=== PATIENT | male | born 1950 | race Two or more races ===

== ENCOUNTER 2025-01-28 14:29 | Inpatient (IN) | payer OTHER ==
[~2025-01-28] VITALS: Ht 177.8 cm; Wt 68.0 kg
[2025-01-28] MEDS ORDERED: ALDACTONE25 MG PO (14:42)
[2025-01-28] MEDS ORDERED: ZESTRIL2.5 MG PO (14:42)
[2025-01-28] MEDS ORDERED: GRALISE600 MG PO (14:43)
[2025-01-28] MEDS ORDERED: FARXIGA10 MG PO (14:43)
[2025-01-28] MEDS ORDERED: GLIMEPIRIDE4 M1 PO (14:43)
[2025-01-28] MEDS ORDERED: LASIX20 MG PO (14:43)
--- NOTE | 2025-01-28 14:43 | NUR ---
SE RECIBE PACIENTE ALERTA Y CONCIENTE X3. EL MISMO REFIERE VENIR POR ULCERA EN EL PIEZ IZQ. SE PROCEDE A LAVELLE S/V AL PACIENTE Y SE UBICA EN LEROY 11 CON BARANDAS ELEVADAS Y NIVEL MAS BAJO DE LA MISMA.
[2025-01-28] MEDS ORDERED: FAMOtidine 10 MG/ML (4ML VIAL) IV ONE (15:00)
[2025-01-28] MEDS ORDERED: PIPERACILLIN/TAZOBACTAM SODIUM 3.375 GM VIAL IV ONE ×2 (15:00→15:19)
[2025-01-28] MEDS ORDERED: FAMOTIDINE/PF 20 MG/2 ML VIAL ONE (15:19)
[2025-01-28 15:54] LABS: BASO % 0.3 % (0.1-1.2); EOS # 0.21 (0.04-0.54); EOS % 1.8 % (0.7-7.0); LYMPH # 0.66 (1.18-3.74); LYMPH % 5.6 % (19.3-53.1); MEAN PLATELET VOLUME 9.90 fl (9.4-12.4); MONO # 0.71 (0.24-0.82); MONO % 6.0 % (4.7-12.5); NEUT # 10.13 (1.56-6.13); NEUT % 85.3 % (34.0-71.1); RED CELL DISTRIBUTION WIDTH 13.0 % (11.6-14.4)
--- NOTE | 2025-01-28 15:55 | NUR ---
SE ORIENTA A PACIENTE SOBRE TRATAMIENTO MEDICO, REFIERE ENTENDER. 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 SE ADMINISTRAN MEDICAMENTOS DONNA ORDEN MEDICAS, SE ENTREGA ENVASE PARA U/A. PENDIENTE REALIZAR X-RAY.
[2025-01-28 16:06] LABS: ERYTHROCYTE SEDIMENTATION RATE 68 mm/hr (0-20)
[2025-01-28 16:08] LABS: URINE APPEARANCE Clear; URINE BILIRRUBIN Negative (NEGATIVE); URINE BLOOD Negative; URINE COLOR Yellow; URINE KETONE Negative (NEGATIVE); URINE LEUKOCYTE Negative; URINE NITRATE Negative; URINE PROTEIN Negative (NEGATIVE); URINE UROBILINOGEN 0.2 E.U./dl
[2025-01-28 16:11] LABS: URINE BACTERIA 30.0 uL (0.0-1933); URINE EPITHELIAL CELLS 2.7 uL (0.0-38.8); URINE WBC 4.3 uL (0.0-23.2)
[2025-01-28 16:14] LABS: INR 1.06
[2025-01-28 16:20] LABS: URINE CAST 0.29 uL (0.0-1.40); URINE GLUCOSE >=1000 MG/DL (NEGATIVE); URINE RBC 1.6 uL (0.0-20.8)
[2025-01-28 16:20] LABS: ALT/SGPT 33.0 U/L (12-78); AST/SGOT 34.0 U/L (15-37); BILIRUBIN TOTAL 0.49 mg/dL (0.3-1.2); CREATININE SERUM 2.01 mg/dL (0.70-1.30); GFR 32.46; GLOBULINA 3.8 G/DL (2.4-3.5)
[2025-01-28 16:22] LABS: BUN CREA RATIO 41.0 (7.0-25.0); GLUCOSE FASTING 246.0 mg/dL (65-100); OSMOLALITY SERUM 307.0 MOSM/KG (275-295)
[2025-01-28] MEDS ORDERED: DEXTROSE 50 % IN WATER 0.5 G/ML VIAL IV PRN (20:00)
[2025-01-28] MEDS ORDERED: INSULIN LISPRO 1,000 UNIT/10 ML UNITS SUBCUTANEO PRN (20:00)
[2025-01-28] MEDS ORDERED: VANCOMYCIN HCL 1,000 MG VIAL IV SCH (20:11)
[2025-01-28] MEDS ORDERED: ENOXAPARIN SODIUM 40 MG/0.4 ML SYRINGE SUBCUTANEO SCH (20:13)
[2025-01-28] MEDS ORDERED: SODIUM POLYSTYRENE SULFONATE 15 G/4 TSP TSP PO ONE (20:15)
[2025-01-28] MEDS ORDERED: 0.9 % SODIUM CHLORIDE 1,000 ML IV SCH (20:15)
[2025-01-28] MEDS ORDERED: ACETAMINOPHEN 325 MG TABLET PO PRN (20:15)
[2025-01-28] MEDS ORDERED: hydrALAZINE HCL 20 MG VIAL IV PRN (20:30)
[2025-01-28] MEDS ORDERED: VANCOMYCIN HCL 1,000 MG VIAL ONE (20:50)
[2025-01-28] MEDS ORDERED: ENOXAPARIN SODIUM 40 MG/0.4 ML SYRINGE SUBCUTANEO ONE (20:50)
[2025-01-28] MEDS ORDERED: SODIUM POLYSTYRENE SULFONATE 15 G/4 TSP TSP ONE (20:50)
[2025-01-28 22:04] VITALS: BP 126/54
[2025-01-28] MEDS ORDERED: NITROGLYCERIN IN 5 % DEXTROSE 250 ML IV SCH (22:15)
[2025-01-29 02:00] VITALS: BP 129/67
[2025-01-29 08:49] VITALS: BP 120/64; O2SAT 99
[2025-01-29] MEDS ORDERED: LINEZOLID IN DEXTROSE 5% 600 MG/300 ML PIGGYBAG IV SCH (09:00)
[2025-01-29] MEDS ORDERED: LACTOBACILLUS ACIDOPHILUS 1 CAP CAP PO SCH (09:00)
[2025-01-29 09:36] LABS: ALT/SGPT 26.0 U/L (12-78); AST/SGOT 26.0 U/L (15-37); BILIRUBIN TOTAL 0.51 mg/dL (0.3-1.2); BUN CREA RATIO 41.0 (7.0-25.0); CREATININE SERUM 1.64 mg/dL (0.70-1.30); GFR 41.05; GLOBULINA 3.4 G/DL (2.4-3.5); GLUCOSE FASTING 109.0 mg/dL (65-100); OSMOLALITY SERUM 305.0 MOSM/KG (275-295)
[2025-01-29] MEDS ORDERED: FLUCONAZOLE 100 MG TABLET PO SCH (10:30)
[2025-01-29] MEDS ORDERED: CHLORHEXIDINE GLUCONATE 120 ML BOTTLE TOP SCH (10:30)
[2025-01-29] MEDS ORDERED: EMOLLIENTS 6 OZ BOTTLE TOP SCH (17:00)
[2025-01-29] MEDS ORDERED: CLOTRIMAZOLE 30 GM TUBE TOP SCH (17:00)
[2025-01-29 17:55] VITALS: BP 127/62
[2025-01-29] MEDS ORDERED: DAPTOMYCIN 500 MG IV SCH (22:00)
[2025-01-30 03:12] VITALS: BP 147/70; O2SAT 99
[2025-01-30 06:24] LABS: BASO % 0.2 % (0.1-1.2); EOS # 0.15 (0.04-0.54); EOS % 1.4 % (0.7-7.0); LYMPH # 0.90 (1.18-3.74); LYMPH % 8.3 % (19.3-53.1); MEAN PLATELET VOLUME 10.40 fl (9.4-12.4); MONO # 0.73 (0.24-0.82); MONO % 6.7 % (4.7-12.5); NEUT # 8.98 (1.56-6.13); NEUT % 82.5 % (34.0-71.1); RED CELL DISTRIBUTION WIDTH 13.1 % (11.6-14.4)
[2025-01-30 06:44] LABS: BUN CREA RATIO 43.0 (7.0-25.0); CREATININE SERUM 1.32 mg/dL (0.70-1.30); GFR 52.73; GLUCOSE FASTING 127.0 mg/dL (65-100); OSMOLALITY SERUM 308.0 MOSM/KG (275-295)
[2025-01-30] MEDS ORDERED: ASPIRIN 81 MG TAB.CHEW PO SCH (09:00)
[2025-01-30] MEDS ORDERED: ATORVASTATIN CALCIUM 40 MG TABLET PO SCH (09:00)
[2025-01-30 10:03] VITALS: BP 149/65; O2SAT 97
[2025-01-30] MEDS ORDERED: CEFAZOLIN SODIUM 2,000 MG in 0.9 % SODIUM CHLORIDE 100 ML IV NR (16:00)
[2025-01-30] MEDS ORDERED: PANTOPRAZOLE SODIUM 40 MG/VIAL VIAL IV SCH (17:00)
[2025-01-30 18:01] VITALS: BP 155/73
[2025-01-30] MEDS ORDERED: SODIUM CL 0.9% 100 ML IV.SOLN IV ONE (18:43)
[2025-01-31 01:42] VITALS: BP 154/70; O2SAT 96
[2025-01-31] MEDS ORDERED: CEFAZOLIN SODIUM 2,000 MG in 0.9 % SODIUM CHLORIDE 100 ML IV SCH (05:00)
[2025-01-31 06:41] LABS: BASO % 0.2 % (0.1-1.2); EOS # 0.09 (0.04-0.54); EOS % 1.1 % (0.7-7.0); LYMPH # 0.70 (1.18-3.74); LYMPH % 8.4 % (19.3-53.1); MEAN PLATELET VOLUME 10.20 fl (9.4-12.4); MONO # 0.73 (0.24-0.82); MONO % 8.7 % (4.7-12.5); NEUT # 6.69 (1.56-6.13); NEUT % 80.0 % (34.0-71.1); RED CELL DISTRIBUTION WIDTH 15.0 % (11.6-14.4)
[2025-01-31 09:02] VITALS: BP 154/67; O2SAT 98
[2025-01-31 18:48] VITALS: BP 168/62
[2025-02-01 02:53] VITALS: BP 144/68; O2SAT 97
[2025-02-01 09:22] VITALS: BP 178/75; O2SAT 98
[2025-02-01 15:42] VITALS: BP 176/74; O2SAT 99
[2025-02-02 02:11] VITALS: BP 110/72
[2025-02-02 07:56] LABS: BASO % 0.1 % (0.1-1.2); EOS # 0.16 (0.04-0.54); EOS % 1.6 % (0.7-7.0); LYMPH # 1.12 (1.18-3.74); LYMPH % 11.5 % (19.3-53.1); MEAN PLATELET VOLUME 9.80 fl (9.4-12.4); MONO # 0.69 (0.24-0.82); MONO % 7.1 % (4.7-12.5); NEUT # 7.58 (1.56-6.13); NEUT % 78.3 % (34.0-71.1); RED CELL DISTRIBUTION WIDTH 16.3 % (11.6-14.4)
[2025-02-02 09:06] VITALS: BP 160/80; O2SAT 97
[2025-02-02] MEDS ORDERED: SODIUM CL 0.9% 100 ML IV.SOLN IV ONE (16:42)
[2025-02-02 18:37] VITALS: BP 160/54; O2SAT 96
[2025-02-03 02:36] VITALS: BP 177/82; O2SAT 96
[2025-02-03 08:46] VITALS: BP 184/74; O2SAT 96
[2025-02-03] MEDS ORDERED: METRONIDAZOLE/SODIUM CHLORIDE 500 MG/100 ML PIGGYBACK IV STA (11:58)
[2025-02-03] MEDS ORDERED: AMLODIPINE BESYLATE 5 MG TABLET PO NR (12:45)
[2025-02-03] MEDS ORDERED: METRONIDAZOLE/SODIUM CHLORIDE 500 MG/100 ML PIGGYBACK IV SCH (17:00)
[2025-02-03] MEDS ORDERED: CEFAZOLIN SODIUM 2,000 MG in 0.9 % SODIUM CHLORIDE 100 ML IV SCH (17:00)
[2025-02-03 19:31] VITALS: BP 185/80
[2025-02-04 01:57] VITALS: BP 160/82; O2SAT 97
[2025-02-04 04:00] VITALS: BP 162/78
[2025-02-04] MEDS ORDERED: AMLODIPINE BESYLATE 5 MG TABLET PO SCH (09:00)
[2025-02-04] MEDS ORDERED: SODIUM HYPOCHLORITE 1OZ TOP SCH (09:00)
[2025-02-04 09:15] VITALS: BP 178/88; O2SAT 98
[2025-02-04] MEDS ORDERED: PANTOPRAZOLE SODIUM 40 MG TABLET.DR PO SCH (17:00)
[2025-02-04 17:14] VITALS: BP 155/71; O2SAT 99
[2025-02-05 01:55] VITALS: BP 160/78; O2SAT 96
[2025-02-05 06:22] LABS: BASO % 0.2 % (0.1-1.2); EOS # 0.11 (0.04-0.54); EOS % 1.3 % (0.7-7.0); LYMPH # 1.12 (1.18-3.74); LYMPH % 12.8 % (19.3-53.1); MEAN PLATELET VOLUME 10.40 fl (9.4-12.4); MONO # 0.47 (0.24-0.82); MONO % 5.4 % (4.7-12.5); NEUT # 6.98 (1.56-6.13); NEUT % 79.6 % (34.0-71.1); RED CELL DISTRIBUTION WIDTH 15.4 % (11.6-14.4)
[2025-02-05 06:37] LABS: BUN CREA RATIO 35.0 (7.0-25.0); CREATININE SERUM 0.82 mg/dL (0.70-1.30); GFR 91.35; GLUCOSE FASTING 99.0 mg/dL (65-100); OSMOLALITY SERUM 296.0 MOSM/KG (275-295)
[2025-02-05 08:29] VITALS: BP 167/82; O2SAT 98
[2025-02-05] MEDS ORDERED: LISINOPRIL 5 MG TABLET PO SCH (12:00)
[2025-02-05 17:00] VITALS: BP 156/83; O2SAT 98
[2025-02-06 02:10] VITALS: BP 172/85
[2025-02-06 09:37] VITALS: BP 162/76; O2SAT 96
[2025-02-06] MEDS ORDERED: VITAMIN B COMPLEX/LYSINE 15 ML BLIST.PACK PO SCH (17:00)
[2025-02-06 19:05] VITALS: BP 146/66; O2SAT 97
[2025-02-07 07:00] VITALS: BP 162/84; O2SAT 94
[2025-02-07] MEDS ORDERED: LISINOPRIL 10 MG TABLET PO SCH (09:00)
[2025-02-07 09:53] VITALS: BP 149/82; O2SAT 96
[2025-02-07 20:26] VITALS: BP 137/63; O2SAT 96
[2025-02-08 03:05] VITALS: BP 151/72; O2SAT 96
[2025-02-08 08:04] LABS: BASO % 0.4 % (0.1-1.2); EOS # 0.14 (0.04-0.54); EOS % 1.7 % (0.7-7.0); LYMPH # 0.74 (1.18-3.74); LYMPH % 9.1 % (19.3-53.1); MEAN PLATELET VOLUME 10.60 fl (9.4-12.4); MONO # 0.64 (0.24-0.82); MONO % 7.9 % (4.7-12.5); NEUT # 6.50 (1.56-6.13); NEUT % 80.2 % (34.0-71.1); RED CELL DISTRIBUTION WIDTH 16.3 % (11.6-14.4)
[2025-02-08 08:25] LABS: BUN CREA RATIO 28.0 (7.0-25.0); CREATININE SERUM 1.08 mg/dL (0.70-1.30); GFR 66.48; GLUCOSE FASTING 121.0 mg/dL (65-100)
[2025-02-08 09:42] LABS: OSMOLALITY SERUM 305.0 MOSM/KG (275-295)
[2025-02-08 10:35] VITALS: BP 136/58; O2SAT 97
[2025-02-08] MEDS ORDERED: SODIUM CHLORIDE 0.45 % 1,000 ML IV SCH (10:45)
[2025-02-08 17:28] VITALS: BP 139/69; O2SAT 98
[2025-02-09 02:36] VITALS: BP 133/66; O2SAT 96
[2025-02-09 10:08] VITALS: BP 132/65; O2SAT 97
[2025-02-09 17:29] LABS: BASO % 0.3 % (0.1-1.2); EOS # 0.08 (0.04-0.54); EOS % 0.8 % (0.7-7.0); LYMPH # 0.67 (1.18-3.74); LYMPH % 6.4 % (19.3-53.1); MEAN PLATELET VOLUME 10.90 fl (9.4-12.4); MONO # 0.77 (0.24-0.82); MONO % 7.3 % (4.7-12.5); NEUT # 8.87 (1.56-6.13); NEUT % 84.1 % (34.0-71.1); RED CELL DISTRIBUTION WIDTH 16.3 % (11.6-14.4)
[2025-02-09 17:48] LABS: BUN CREA RATIO 30.0 (7.0-25.0); CREATININE SERUM 1.18 mg/dL (0.70-1.30); GFR 60.02; GLUCOSE FASTING 172.0 mg/dL (65-100); OSMOLALITY SERUM 304.0 MOSM/KG (275-295)
[2025-02-09 17:51] VITALS: BP 136/68; O2SAT 95
[2025-02-10 03:12] VITALS: BP 144/70; O2SAT 96
[2025-02-10 09:15] VITALS: BP 150/79; O2SAT 96
[2025-02-10 18:23] VITALS: BP 153/54; O2SAT 97
[2025-02-10] MEDS ORDERED: ENOXAPARIN SODIUM 60 MG/0.6 ML SYRINGE SUBCUTANEO SCH (21:00)
[2025-02-11 01:18] VITALS: BP 147/69; O2SAT 92
[2025-02-11 06:50] LABS: BASO % 0.3 % (0.1-1.2); EOS # 0.10 (0.04-0.54); EOS % 1.1 % (0.7-7.0); LYMPH # 0.90 (1.18-3.74); LYMPH % 10.3 % (19.3-53.1); MEAN PLATELET VOLUME 9.80 fl (9.4-12.4); MONO # 0.87 (0.24-0.82); MONO % 10.0 % (4.7-12.5); NEUT # 6.73 (1.56-6.13); NEUT % 77.3 % (34.0-71.1); RED CELL DISTRIBUTION WIDTH 16.6 % (11.6-14.4)
[2025-02-11 07:30] LABS: INR 1.92
[2025-02-11 08:45] VITALS: BP 133/71; O2SAT 97
[2025-02-11 08:59] LABS: BUN CREA RATIO 27.0 (7.0-25.0); CREATININE SERUM 1.28 mg/dL (0.70-1.30); GFR 54.64; GLUCOSE FASTING 148.0 mg/dL (65-100)
[2025-02-11 09:00] LABS: OSMOLALITY SERUM 308.0 MOSM/KG (275-295)
[2025-02-11] MEDS ORDERED: PHYTONADIONE 10 MG/ML AMPUL IM STA (09:58)
[2025-02-11 18:30] VITALS: BP 136/64
[2025-02-12 01:18] VITALS: BP 120/76; O2SAT 96
[2025-02-12 07:08] LABS: FE 39.0 ug/dl (65-175)
[2025-02-12 08:24] VITALS: BP 173/69; O2SAT 95
[2025-02-12 11:29] LABS: FOLIC ACID > 20.00 ng/ml (4.78-20)
[2025-02-12 19:00] VITALS: BP 123/66
[2025-02-12] MEDS ORDERED: SOD FERRIC GLUC COMPLX/SUCROSE 62.5 MG/5 ML AMPUL IV SCH (20:07)
[2025-02-13 01:05] VITALS: BP 119/71
[2025-02-13 09:12] VITALS: BP 129/60; O2SAT 96
[2025-02-13] MEDS ORDERED: Cyanocobalamin/Mecobalamin 1 TAB.SL SL NR (11:00)
[2025-02-13] MEDS ORDERED: MULTIVIT INFUSN,ADULT 4,VIT K 10 ML VIAL IV NR (11:00)
[2025-02-13 11:03] LABS: BUN CREA RATIO 20.0 (7.0-25.0); CREATININE SERUM 1.67 mg/dL (0.70-1.30); GFR 40.2; GLUCOSE FASTING 134.0 mg/dL (65-100); OSMOLALITY SERUM 304.0 MOSM/KG (275-295)
[2025-02-13] MEDS ORDERED: MORPHINE SULFATE 4 MG/ML CARTRIDGE IV PRN (11:30)
[2025-02-13 17:56] VITALS: BP 107/55; O2SAT 93
[2025-02-14 01:32] VITALS: BP 126/63; O2SAT 96
[2025-02-14] MEDS ORDERED: MULTIVIT INFUSN,ADULT 4,VIT K 10 ML VIAL IV SCH (09:00)
[2025-02-14] MEDS ORDERED: Cyanocobalamin/Mecobalamin 1 TAB.SL SL SCH (09:00)
[2025-02-14 09:47] VITALS: BP 103/64; O2SAT 96
[2025-02-14] MEDS ORDERED: CLOPIDOGREL BISULFATE 75 MG TABLET PO NR (11:00)
[2025-02-14 17:49] VITALS: BP 102/68; O2SAT 97
[2025-02-15 02:22] VITALS: BP 110/62
[2025-02-15] MEDS ORDERED: CLOPIDOGREL BISULFATE 75 MG TABLET PO SCH (09:00)
[2025-02-15 09:34] VITALS: BP 124/73
[2025-02-15 18:25] VITALS: BP 130/63; O2SAT 98
[2025-02-16 02:20] VITALS: BP 106/60; O2SAT 96
[2025-02-16 08:59] VITALS: BP 98/64; O2SAT 99
[2025-02-16 17:00] VITALS: BP 111/55; O2SAT 95
[2025-02-17 02:28] VITALS: BP 116/50; O2SAT 96
[2025-02-17 07:08] LABS: g6pd quant 263 (127-427)
[2025-02-17 10:04] VITALS: BP 114/66; O2SAT 96
[2025-02-17 16:41] VITALS: BP 102/63
[2025-02-17 19:22] LABS: BASO % 0.3 % (0.1-1.2); EOS # 0.12 (0.04-0.54); EOS % 1.1 % (0.7-7.0); LYMPH # 0.87 (1.18-3.74); LYMPH % 7.7 % (19.3-53.1); MEAN PLATELET VOLUME 10.10 fl (9.4-12.4); MONO # 1.19 (0.24-0.82); MONO % 10.6 % (4.7-12.5); NEUT # 8.86 (1.56-6.13); NEUT % 78.7 % (34.0-71.1); RED CELL DISTRIBUTION WIDTH 19.3 % (11.6-14.4)
[2025-02-18] VITALS (13 sets, daily range): BP systolic 67–114; BP diastolic 28–93; O2SAT 80–100
[2025-02-18 06:25] LABS: BASO % 0.2 % (0.1-1.2); EOS # 0.06 (0.04-0.54); EOS % 0.5 % (0.7-7.0); LYMPH # 0.95 (1.18-3.74); LYMPH % 8.0 % (19.3-53.1); MEAN PLATELET VOLUME 10.40 fl (9.4-12.4); MONO # 1.20 (0.24-0.82); MONO % 10.2 % (4.7-12.5); NEUT # 9.37 (1.56-6.13); NEUT % 79.2 % (34.0-71.1); RED CELL DISTRIBUTION WIDTH 19.6 % (11.6-14.4)
[2025-02-18 06:31] LABS: ABG PH 6.980 (7.35-7.45); ABG PO2 137.2 mmHg (80-100); BICARBONATE 9.5 mmol/l (23-25); o2 100 %
[2025-02-18 06:58] LABS: GLUCOSE FASTING 99.0 mg/dL (65-100); OSMOLALITY SERUM 306.0 MOSM/KG (275-295)
[2025-02-18 07:16] LABS: BUN CREA RATIO 12.0 (7.0-25.0); GFR 11.31
[2025-02-18 07:17] LABS: CREATININE SERUM 5.01 mg/dL (0.70-1.30)
[2025-02-18] MEDS ORDERED: 0.9 % SODIUM CHLORIDE 1,000 ML IV ONE (07:30)
[2025-02-18] MEDS ORDERED: NOREPINEPHRINE BITARTRATE 8 MG in DEXTROSE 5 % IN WATER 250 ML IV SCH (07:30)
[2025-02-18] MEDS ORDERED: SODIUM BICARBONATE 1 MEQ/ML DISP.SYRIN 50ML IV ONE (07:30)
[2025-02-18] MEDS ORDERED: SODIUM BICARBONATE 1 MEQ/ML DISP.SYRIN 50ML IV SCH (07:45)
[2025-02-18] MEDS ORDERED: DOPamine HCL IN DEXTROSE 5 % 250 ML IV SCH (08:00)
[2025-02-18] MEDS ORDERED: POLYVINYL ALCOHOL 15 ML DROPS OP SCH (09:00)
[2025-02-18] MEDS ORDERED: CHLORHEXIDINE GLUCONATE 15ML BRUSH KIT MM SCH (09:00)
[2025-02-18] MEDS ORDERED: HYDROCORTISONE SODIUM SUCC/PF 100 MG VIAL IV SCH (09:00)
[2025-02-18] MEDS ORDERED: MEROPENEM 500 MG/VIAL VIAL IV STA (09:32)
[2025-02-18] MEDS ORDERED: FLUCONAZOLE IN NACL,ISO-OSM 2 MG/ML ML IV STA (09:34)
[2025-02-18 11:42] LABS: ABG PO2 232.2 mmHg (80-100); BICARBONATE 6.9 mmol/l (23-25)
[2025-02-18 11:45] LABS: ABG PH 7.044 (7.35-7.45); o2 100 %
[2025-02-18] MEDS ORDERED: SODIUM BICARBONATE 50MEQ/50ML VIAL IV NR (12:15)
[2025-02-18 12:22] LABS: BASO % 0.1 % (0.1-1.2); EOS # 0.02 (0.04-0.54); EOS % 0.2 % (0.7-7.0); LYMPH # 0.69 (1.18-3.74); LYMPH % 6.0 % (19.3-53.1); MEAN PLATELET VOLUME 10.10 fl (9.4-12.4); MONO # 0.82 (0.24-0.82); MONO % 7.2 % (4.7-12.5); NEUT # 9.63 (1.56-6.13); NEUT % 84.4 % (34.0-71.1); RED CELL DISTRIBUTION WIDTH 20.1 % (11.6-14.4)
[2025-02-18] MEDS ORDERED: 0.9 % SODIUM CHLORIDE 1,000 ML IV SCH ×4 (14:45→15:15)
[2025-02-18] MEDS ORDERED: EPINEPHRINE HCL/PF 4 MG in DEXTROSE 5 % IN WATER 250 ML IV SCH (14:45)
[2025-02-18] MEDS ORDERED: VASOPRESSIN 40 UNITS in 0.9 % SODIUM CHLORIDE 100 ML IV SCH (15:00)
[2025-02-18 19:10] LABS: BICARBONATE 7.8 mmol/l (23-25)
[2025-02-18 19:30] LABS: ABG PH 7.104 (7.35-7.45)
[2025-02-18 19:31] LABS: ABG PO2 54.5 mmHg (80-100); o2 80 %
[2025-02-18] MEDS ORDERED: SODIUM BICARBONATE 1 MEQ/ML DISP.SYRIN 50ML IV STA (20:13)
[2025-02-18] MEDS ORDERED: PHENYLEPHRINE HCL 20 MG in 0.9 % SODIUM CHLORIDE 250 ML IV SCH (20:15)
[2025-02-19] VITALS (23 sets, daily range): BP systolic 61–144; BP diastolic 37–60; O2SAT 73–100
[2025-02-19 08:36] LABS: ABG PO2 236.1 mmHg (80-100); BICARBONATE 5.4 mmol/l (23-25)
[2025-02-19 08:55] LABS: ABG PH 6.951 (7.35-7.45); o2 100 %
[2025-02-19] MEDS ORDERED: POLYVINYL ALCOHOL 15 ML DROPS OP SCH (09:00)
[2025-02-19] MEDS ORDERED: CHLORHEXIDINE GLUCONATE 15ML BRUSH KIT MM SCH (09:00)
[2025-02-19] MEDS ORDERED: MEROPENEM 500 MG/VIAL VIAL IV SCH (09:00)
[2025-02-19] MEDS ORDERED: SODIUM CL 0.9% 100 ML IV.SOLN IV ONE ×3 (09:15→09:16)
[2025-02-19] MEDS ORDERED: FLUCONAZOLE IN NACL,ISO-OSM 2 MG/ML ML IV SCH (12:00)
[2025-02-19] MEDS ORDERED: SODIUM BICARBONATE 150 MEQ in DEXTROSE 5 % IN WATER 1,000 ML IV NR (12:15)
[2025-02-19] MEDS ORDERED: NOREPINEPHRINE BITARTRATE IV SCH (14:15)
[2025-02-19] MEDS ORDERED: DEXTROSE 5% IV SCH (14:15)
[2025-02-19] MEDS ORDERED: PHENYLEPHRINE HCL 80 MG in 0.9 % SODIUM CHLORIDE 1,000 ML IV SCH (14:15)
[2025-02-19] MEDS ORDERED: WATER IV SCH (14:15)
[2025-02-19] MEDS ORDERED: HYDROCORTISONE SODIUM SUCC/PF 50 MG/ML ML IV SCH (17:00)
[2025-02-19] MEDS ORDERED: PHENYLEPHRINE HCL 10 MG/ML AMPUL ONE ×2 (17:39→22:05)
[2025-02-19 22:19] LABS: BASO % 0.2 % (0.1-1.2); EOS # 0.06 (0.04-0.54); EOS % 0.4 % (0.7-7.0); LYMPH # 2.25 (1.18-3.74); LYMPH % 13.7 % (19.3-53.1); MEAN PLATELET VOLUME 10.80 fl (9.4-12.4); MONO # 0.80 (0.24-0.82); MONO % 4.9 % (4.7-12.5); NEUT # 11.86 (1.56-6.13); NEUT % 71.9 % (34.0-71.1); RED CELL DISTRIBUTION WIDTH 19.6 % (11.6-14.4)
[2025-02-19 23:14] LABS: BILIRUBIN TOTAL 1.52 mg/dL (0.3-1.2); GLUCOSE FASTING 89.0 mg/dL (65-100); OSMOLALITY SERUM 295.0 MOSM/KG (275-295)
[2025-02-20 00:08] LABS: BAND MAN 6.0 %; EOSINOPHIL MAN 1.0 %; LYMPHOCYTE MAN 20.0 %; METAMYELOCYTE 2.0 %; MONOCYTE MAN 5.0 %; NEUTROPHILS MAN 66.0 %
[2025-02-20 00:25] LABS: D DIMER > 35.20 MG/L
[2025-02-20 00:31] LABS: BUN CREA RATIO 12.0 (7.0-25.0)
[2025-02-20 00:32] LABS: GLOBULINA 2.6 G/DL (2.4-3.5)
[2025-02-20 00:33] LABS: ALT/SGPT 793.0 U/L (12-78); AST/SGOT 21190.0 U/L (15-37)
[2025-02-20 00:35] LABS: COL ADP >255 SECONDS (56-102)
[2025-02-20 00:40] LABS: COL EPI >155 SECONDS (82-175)
[2025-02-20 04:58] LABS: CREATININE SERUM 4.87 mg/dL (0.70-1.30)
[2025-02-20 04:59] LABS: GFR 11.69
== END 2025-02-19 22:36 | disposition expired | DRG 616 ==
LOC: ER 14:29 → MEDJ 20:32 → ICU 02-18 19:26
PROVIDERS: General Practice; Internal Medicine; Internal Medicine Hematology & Oncology; Specialist; Student in an Organized Health Care Education/Training Program; ADMIT Internal Medicine; ATTEND Internal Medicine
PROC: B24BZZZ Ultrasonography of Heart with Aorta (ICD-10-PCS; 2025-01-28)
PROC: B44HZZZ Ultrasonography of Bilateral Lower Extremity Arteries (ICD-10-PCS; 2025-01-29)
PROC: 30233N1 Transfusion of Nonautologous Red Blood Cells into Peripheral Vein, Percutaneous Approach (ICD-10-PCS; 2025-01-30)
PROC: 0JBR0ZX Excision of Left Foot Subcutaneous Tissue and Fascia, Open Approach, Diagnostic (ICD-10-PCS; 2025-01-31)
PROC: BQ3MYZZ Magnetic Resonance Imaging (MRI) of Left Foot using Other Contrast (ICD-10-PCS; 2025-02-03)
PROC: 0JBR0ZZ Excision of Left Foot Subcutaneous Tissue and Fascia, Open Approach (ICD-10-PCS; 2025-02-05)
PROC: 02HV33Z Insertion of Infusion Device into Superior Vena Cava, Percutaneous Approach (ICD-10-PCS; 2025-02-05)
PROC: B41DYZZ Fluoroscopy of Aorta and Bilateral Lower Extremity Arteries using Other Contrast (ICD-10-PCS; 2025-02-07)
PROC: B54MZZZ Ultrasonography of Right Upper Extremity Veins (ICD-10-PCS; 2025-02-09)
PROC: 0JBR0ZZ Excision of Left Foot Subcutaneous Tissue and Fascia, Open Approach (ICD-10-PCS; 2025-02-12)
PROC: 0Y6Y0Z0 Detachment at Left 5th Toe, Complete, Open Approach (ICD-10-PCS; principal; 2025-02-12 20:00)
PROC: 0JBR0ZZ Excision of Left Foot Subcutaneous Tissue and Fascia, Open Approach (ICD-10-PCS; 2025-02-17)
PROC: 0BH17EZ Insertion of Endotracheal Airway into Trachea, Via Natural or Artificial Opening (ICD-10-PCS; 2025-02-18)
PROC: 5A1935Z Respiratory Ventilation, Less than 24 Consecutive Hours (ICD-10-PCS; 2025-02-18)
PROC: 4A12X4Z Monitoring of Cardiac Electrical Activity, External Approach (ICD-10-PCS; 2025-02-18)
PROC: B54DZZZ Ultrasonography of Bilateral Lower Extremity Veins (ICD-10-PCS; 2025-02-18)
DX: E11.621 Type 2 diabetes mellitus with foot ulcer (principal); I21.4 Non-ST elevation (NSTEMI) myocardial infarction; J96.00 Acute respiratory failure, unspecified whether with hypoxia or hypercapnia; R65.21 Severe sepsis with septic shock; E11.52 Type 2 diabetes mellitus with diabetic peripheral angiopathy with gangrene; E87.0 Hyperosmolality and hypernatremia; L03.116 Cellulitis of left lower limb; M86.172 Other acute osteomyelitis, left ankle and foot; I96 Gangrene, not elsewhere classified; E87.20 Acidosis, unspecified; L97.529 Non-pressure chronic ulcer of other part of left foot with unspecified severity; Z79.4 Long term (current) use of insulin; N17.9 Acute kidney failure, unspecified; B95.61 Methicillin susceptible Staphylococcus aureus infection as the cause of diseases classified elsewhere; B96.89 Other specified bacterial agents as the cause of diseases classified elsewhere; B35.3 Tinea pedis; D69.6 Thrombocytopenia, unspecified; I82.621 Acute embolism and thrombosis of deep veins of right upper extremity; E11.22 Type 2 diabetes mellitus with diabetic chronic kidney disease; I12.9 Hypertensive chronic kidney disease with stage 1 through stage 4 chronic kidney disease, or unspecified chronic kidney disease; N18.31 Chronic kidney disease, stage 3a; D63.1 Anemia in chronic kidney disease; D50.8 Other iron deficiency anemias; R57.0 Cardiogenic shock